=== PATIENT | male | born 1970 | race Two or more races ===

== ENCOUNTER 2019-01-09 07:24 | Emergency (ER) | payer MEDICAID ==
[~2019-01-09] VITALS: Ht 182.9 cm; Wt 99.8 kg
[2019-01-09 07:33] VITALS: Ht 182.9 cm; Wt 99.8 kg
[2019-01-09 08:48] LABS: BASOPHIL % 0.7 % (0-2); PLATELET COUNT 190 x10^3mcL (130-400); RED CELL DISTRIBUTION WIDTH 13.7 % (11.5-14.5)
[2019-01-09 09:07] LABS: CALCIUM 8.8 mg/dL (8.5-10.1); CARBON DIOXIDE 28.8 mmol/L (21-32); CHLORIDE SERUM 100 mmol/L (98-107); CREATININE SERUM 1.1 mg/dL (0.7-1.3); GFR1 > 60 mL/min; GLUCOSE SERUM 102 mg/dL (74-106); POTASSIUM SERUM 3.7 mmol/L (3.5-5.1); SODIUM SERUM 140 mmol/L (136-145)
[2019-01-09 09:10] LABS: ALBUMIN 3.4 g/dL (3.4-5.0); ALKALINE PHOSPHATASE 151 U/L (46-116); ALT/SGPT 109 U/L (16-63); AST/SGOT 50 U/L (15-37); BILIRUBIN TOTAL 0.7 mg/dL (0.20-1.00); HDL CHOLESTEROL 42 mg/dL (40-60); LIPASE 312 IU/L (73-393); TOTAL PROTEIN, SERUM 7.7 g/dL (6.4-8.2)
[2019-01-09 09:14] LABS: AMPHETAMINE QUAL UR NONE DETECTED (See below)
[2019-01-09 09:15] LABS: CHOLESTEROL 213 mg/dL (<200); CHOLESTEROL/HDL RATIO 5.1; TRIGLYCERIDES 225 mg/dL (<150)
[2019-01-09 12:51] VITALS: BP 120/82
== END 2019-01-09 12:51 | disposition home or self-care (01) ==
LOC: ED 07:24
PROVIDERS: Emergency Medicine
DX: K29.00 Acute gastritis without bleeding (principal); R94.5 Abnormal results of liver function studies; E78.00 Pure hypercholesterolemia, unspecified; J45.909 Unspecified asthma, uncomplicated
CPT/HCPCS: 36415; Q0092